=== PATIENT | female | born 1955 | race Caucasian/White ===

== ENCOUNTER → 2021-05-30 | Outpatient (CLI) | payer MEDICAID ==
[~2021-05-30] MED LIST: AGM875T PO; CALC-656 PO; CTLP20T PO; DIAZ-345 PO; ESCT10T PO; HYDR-229 PO; LORA1TAB5 PO; MULT-608 PO; NAPR-243 PO
== END ==
LOC: WOUNDCARE 13:18
PROVIDERS: ATTEND Family Medicine
DX: L97.222 Non-pressure chronic ulcer of left calf with fat layer exposed (principal); L03.116 Cellulitis of left lower limb; I89.0 Lymphedema, not elsewhere classified; E66.01 Morbid (severe) obesity due to excess calories; M06.9 Rheumatoid arthritis, unspecified; Z68.37 Body mass index [BMI] 37.0-37.9, adult
CPT/HCPCS: 11042; A6197; G0463

== ENCOUNTER → 2021-06-05 | Outpatient (CLI) | payer MEDICAID | LOC: WOUNDCARE 13:08 | PROVIDERS: ATTEND Family Medicine | DX: I96 Gangrene, not elsewhere classified (principal); L97.222 Non-pressure chronic ulcer of left calf with fat layer exposed; L03.116 Cellulitis of left lower limb; I89.0 Lymphedema, not elsewhere classified; E66.01 Morbid (severe) obesity due to excess calories; M06.9 Rheumatoid arthritis, unspecified; Z68.37 Body mass index [BMI] 37.0-37.9, adult | CPT/HCPCS: A6212; G0463; 99212 ==

== ENCOUNTER → 2021-06-12 | Outpatient (CLI) | payer MEDICAID | LOC: WOUNDCARE 13:02 | PROVIDERS: ATTEND Family Medicine | DX: I96 Gangrene, not elsewhere classified (principal); L97.222 Non-pressure chronic ulcer of left calf with fat layer exposed; I89.0 Lymphedema, not elsewhere classified; E66.01 Morbid (severe) obesity due to excess calories; M06.9 Rheumatoid arthritis, unspecified; Z68.37 Body mass index [BMI] 37.0-37.9, adult | CPT/HCPCS: 11042; G0463 ==

== ENCOUNTER → 2021-06-19 | Outpatient (CLI) | payer MEDICAID | LOC: WOUNDCARE 13:09 | PROVIDERS: ATTEND Family Medicine | DX: I96 Gangrene, not elsewhere classified (principal); L97.222 Non-pressure chronic ulcer of left calf with fat layer exposed; I89.0 Lymphedema, not elsewhere classified; E66.01 Morbid (severe) obesity due to excess calories; M06.9 Rheumatoid arthritis, unspecified; Z68.37 Body mass index [BMI] 37.0-37.9, adult | CPT/HCPCS: 11042; G0463 ==

== ENCOUNTER → 2021-06-26 | Outpatient (CLI) | payer MEDICAID | LOC: WOUNDCARE 13:09 | PROVIDERS: ATTEND Family Medicine | DX: I96 Gangrene, not elsewhere classified (principal); L97.222 Non-pressure chronic ulcer of left calf with fat layer exposed; I89.0 Lymphedema, not elsewhere classified; E66.01 Morbid (severe) obesity due to excess calories; M06.9 Rheumatoid arthritis, unspecified; Z68.37 Body mass index [BMI] 37.0-37.9, adult | CPT/HCPCS: 11042; A6021; G0463 ==

== ENCOUNTER → 2021-07-03 | Outpatient (CLI) | payer MEDICAID | LOC: WOUNDCARE 13:04 | PROVIDERS: ATTEND Family Medicine | DX: I89.0 Lymphedema, not elsewhere classified (principal); E66.01 Morbid (severe) obesity due to excess calories; M06.9 Rheumatoid arthritis, unspecified; T65.222A Toxic effect of tobacco cigarettes, intentional self-harm, initial encounter | CPT/HCPCS: 29581; G0463 ==

== ENCOUNTER 2021-09-24 07:57 | Emergency (ER) | payer MEDICAID ==
[~2021-09-24] VITALS: Ht 162.5 cm; Wt 81.6 kg
[2021-09-24] MEDS ORDERED: RT-ALBUTEROL HFA 8.5 GM INHALER IH STA (08:10)
[2021-09-24] MEDS ORDERED: fentaNYL INJ 100 MCG/2 ML AMP IVP ONE (08:15)
[2021-09-24 08:19] LABS: BASOPHILS % (AUTO) 0 % (0-10); EOSINOPHILS # (AUTO) 0.2 10^3/uL (0.0-0.3); EOSINOPHILS % (AUTO) 2 % (0-10); HEMATOCRIT 37 % (35-52); HEMOGLOBIN 12.1 g/dL (11.5-16.0); LYMPHOCYTES # (AUTO) 2.3 10^3/uL (1.0-4.0); LYMPHOCYTES % (AUTO) 20 % (12-44); MEAN CORPUSCULAR HEMOGLOBIN 30 pg (25-34); MEAN CORPUSCULAR HGB CONC 33 g/dL (32-36); MEAN CORPUSCULAR VOLUME 93 fL (80-99); MEAN PLATELET VOLUME 8.3 fL (9.0-12.2); MONOCYTES # (AUTO) 0.6 10^3/uL (0.0-1.0); MONOCYTES % (AUTO) 6 % (0-12); NEUTROPHILS # (AUTO) 8.3 10^3/uL (1.8-7.8); NEUTROPHILS % (AUTO) 72 % (42-75); PLATELET COUNT 285 10^3/uL (130-400); WHITE BLOOD COUNT 11.5 10^3/uL (4.3-11.0)
[2021-09-24 08:37] LABS: ALBUMIN 3.8 GM/DL (3.2-4.5); POTASSIUM 4.5 MMOL/L (3.6-5.0)
[2021-09-24 08:38] LABS: CALCIUM 9.5 MG/DL (8.5-10.1)
[2021-09-24 08:39] LABS: TOTAL PROTEIN 7.2 GM/DL (6.4-8.2)
[2021-09-24 08:41] LABS: BILIRUBIN,TOTAL 0.3 MG/DL (0.1-1.0)
[2021-09-24 08:43] LABS: CREATININE SERUM 1.01 MG/DL (0.60-1.30)
--- NOTE | 2021-09-24 09:14 | ED Abdominal Pain ---
General Chief Complaint: Abdominal/GI Problems Stated Complaint: ABD PAIN Nursing Triage Note: abdominal pain started at 0500 this am, reports paiun before from lower abdominal hernia. currently rates pain 11/12 arrived via ambulance to room 3 Source of Information: Patient Exam Limitations: No Limitations History of Present Illness Date Seen by Provider: September 24, 2021 Time Seen by Provider: 07:59 Initial Comments This 65-year-old woman presents to the emergency room with complaints of pain in the left inguinal area secondary to a known hernia for which she is to see a surgeon, Dr. Richardson, at [place] next week. The pain was so intense this morning that she felt it necessary to call 911 and seek ambulance transport to the ER. Upon arrival to the ER her pain suddenly dissipated to a mild to moderate level. She has been suffering from chronic cough and the hernia tends to get worse and more painful when she has coughing fits. She is having a coughing fit this morning. She states her cough is no worse than normal and she denies any other symptoms of infectious illness such as fever, chills, diarrhea, etc. She has noted no change in bowels and her last bowel movement was this morning. She did have some nausea when her pain was more intense. Patient states she is normally able to reduce the hernia on her own but has not been able to reduce it this morning. Allergies and Home Medications Allergies Coded Allergies: No Known Drug Allergies (Unverified , 02/13/10) Patient Home Medication List Home Medication List Reviewed: Yes Benzonatate (Tessalon Perles) 100 Mg Capsule, 200 MG PO TID PRN for COUGH Prescribed by: ABEL GUZMAN on 09/24/21916 Benzonatate (Tessalon Perles) 100 Mg Capsule, 200 MG PO TID PRN for COUGH Prescribed by: ABEL GUZMAN on 09/24/21916 Calcium Carbonate/Vitamin D3 (Calcium 500 + D Tablet) 1 Each Tablet, 1 TAB PO DAILY, (Reported) Entered as Reported by: YUE YUSUF on 12/20/092018 Citalopram Hydrobromide (Celexa) 20 Mg Tablet, 1 EACH PO DAILY, (Reported) Entered as Reported by: JUAN PABLO ONEAL on 09/21/11 1354 Diazepam (Valium 5 Mg Tab) 5 Mg Tablet, 1 EACH PO TID Prescribed by: KAMILA TIERNEY on 09/21/111510 Hydrocodone Bit/Acetaminophen (Lortab 10-500 Tablet) 1 Each Tablet, 1 EACH PO Q 4 - 6 HRS PRN Prescribed by: KAMILA TIERNEY on 09/21/111510 Loratadine/Pseudoephedrine (Claritin-D 24 Hour Tab Er) 1 Tab.sr .24 H Tab.sr.24h, 1 TAB PO DAILY, (Reported) Entered as Reported by: YUE YUSUF on 12/20/092018 Multivitamins (Multiple Vitamin) 1 Tab Tablet, 1 TAB PO DAILY, (Reported) Entered as Reported by: YUE YUSUF on 12/20/092018 Naproxen (Naprosyn) 500 Mg Tablet, 500 MG PO BID, (Reported) Entered as Reported by: YUE YUSUF on 12/20/092018 Review of Systems Review of Systems Constitutional: no symptoms reported EENTM: No Symptoms Reported Respiratory: See HPI Cardiovascular: No Symptoms Reported Gastrointestinal: See HPI Genitourinary: No Symptoms Reported Musculoskeletal: no symptoms reported Skin: no symptoms reported Psychiatric/Neurological: No Symptoms Reported Endocrine: No Symptoms Reported Hematologic/Lymphatic: No Symptoms Reported Past [id number]-[id number]-Kenlpo Hx Patient Social History Tobacco Use?: Yes Tobacco type used: Cigarettes Smoking Status: Current Everyday Smoker Use of E-Cig and/or Vaping dev: No Substance use?: No Alcohol Use?: No Pt feels they are or have been: No Immunizations Up To Date First/Initial COVID19 Vaccinat: declined Past Medical History Surgeries: Yes Section, Joint Replacement (Bilateral knees) Respiratory: Yes COPD (Chronic cough) Cardiac: Yes (Congestive heart failure) Neurological: No : No Reproductive Disorders: No Genitourinary: No Gastrointestinal: Yes Abdominal Hernia (Left inguinal hernia) Musculoskeletal: No Endocrine: No HEENT: No Cancer: No Psychosocial: No Physical Exam Vital Signs Vital Signs - First Documented 09/24/21 08:00 Temp 35.5 Pulse 75 Resp 20 B/P (MAP) 149/97 (114) Pulse Ox 94 O2 Delivery Room Air Capillary Refill : Less Than 3 Seconds Height/Weight/BMI Height: '" Weight: lbs. oz. 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, no motor/sensory deficits, alert, normal mood/affect, oriented x 3 Skin: normal color, warm/dry Progress/Results/Core Measures Results/Orders Lab Results Laboratory Tests Test 09/24/21 08:05 Range/Units White Blood Count 11.5 H 4.3-11.0 10^3/uL Red Blood Count 3.98 3.80-5.11 10^6/uL Hemoglobin 12.1 11.5-16.0 g/dL Hematocrit 37 35-52 % Mean Corpuscular Volume 93 80-99 fL Mean Corpuscular Hemoglobin 30 25-34 pg Mean Corpuscular Hemoglobin Concent 33 32-36 g/dL Red Cell Distribution Width 14.3 10.0-14.5 % Platelet Count 285 130-400 10^3/uL Mean Platelet Volume 8.3 L 9.0-12.2 fL Immature Granulocyte % (Auto) 0 % Neutrophils (%) (Auto) 72 42-75 % Lymphocytes (%) (Auto) 20 12-44 % Monocytes (%) (Auto) 6 0-12 % Eosinophils (%) (Auto) 2 0-10 % Basophils (%) (Auto) 0 0-10 % Neutrophils # (Auto) 8.3 H 1.8-7.8 10^3/uL Lymphocytes # (Auto) 2.3 1.0-4.0 10^3/uL Monocytes # (Auto) 0.6 0.0-1.0 10^3/uL Eosinophils # (Auto) 0.2 0.0-0.3 10^3/uL Basophils # (Auto) 0.0 0.0-0.1 10^3/uL Immature Granulocyte # (Auto) 0.0 0.0-0.1 10^3/uL Sodium Level 138 135-145 MMOL/L Potassium Level 4.5 3.6-5.0 MMOL/L Chloride Level 100 98-107 MMOL/L Carbon Dioxide Level 27 21-32 MMOL/L Anion Gap 11 5-14 MMOL/L Blood Urea Nitrogen 16 7-18 MG/DL Creatinine 1.01 0.60-1.30 MG/DL Estimat Glomerular Filtration Rate 63 BUN/Creatinine Ratio 16 Glucose Level 128 H 70-105 MG/DL Calcium Level 9.5 8.5-10.1 MG/DL Corrected Calcium 9.7 8.5-10.1 MG/DL Total Bilirubin 0.3 0.1-1.0 MG/DL Aspartate Amino Transf (AST/SGOT) 20 5-34 U/L Alanine Aminotransferase (ALT/SGPT) 15 0-55 U/L Alkaline Phosphatase 52 40-136 U/L C-Reactive Protein High Sensitivity 0.15 0.00-0.50 MG/DL Total Protein 7.2 6.4-8.2 GM/DL Albumin 3.8 3.2-4.5 GM/DL Lipase 216 H 8-78 U/L My Orders Orders - ABEL OCHOA MD Cbc With Automated Diff (09/24/21 07:59) Comprehensive Metabolic Panel (09/24/21 07:59) Hs C Reactive Protein (09/24/21 07:59) Lipase (09/24/21 07:59) Ua Culture If Indicated (09/24/21 07:59) Fentanyl Inj (Sublimaze Injection) (09/24/21 08:15) Albuterol Inhaler (Albuterol) (09/24/21 08:10) Medications Given in ED Current Medications Medications Dose Ordered Sig/Meagan Route Start Time Stop Time Status Last Admin Dose Admin Fentanyl Citrate 50 mcg ONCE ONCE IVP 09/24/21 08:15 09/24/21 08:16 DC 09/24/21 08:25 50 MCG Vital Signs/I&O 09/24/21 09/24/21 08:00 09:35 Temp 35.5 Pulse 75 94 Resp 20 18 B/P (MAP) 149/97 (114) 148/83 Pulse Ox 94 94 O2 Delivery Room Air Room Air Blood Pressure Mean: 114 Progress Progress Note : Time: 09:18 Progress Note Patient was interviewed and examined immediately upon arrival and report was received from EMS. On examination she had an obvious incarcerated left inguinal hernia. She was not severely tender at that time and pain had actually improved significantly after arrival even before treatment with fentanyl. I discussed the situation with Dr. Carney who recommended placing the patient in slight Trendelenburg and using a frog-leg position during a repeat reduction attempt. This was successful and hernia was completely reduced. Patient was then pain- free. She was given albuterol inhaler treatments which greatly improved her coughing. She was not observed to have any more coughing fits after the albuterol treatment. She was strongly encouraged to reduce her smoking and to treat her allergies and COPD with inhaler and Flonase. See discharge instructions for further discussion. Departure Impression Primary Impression: Left inguinal hernia Additional Impressions: Elevated lipase COPD (chronic obstructive pulmonary disease) Qualified Codes: J44.9 - Chronic obstructive pulmonary disease, unspecified Pelvic pain Disposition: HOME, SELF-CARE Condition: Improved Departure-Patient Inst. Decision time for Depature: 09:09 Referrals: NO,LOCAL PHYSICIAN (PCP/Family) Primary Care Physician Patient Instructions: Inguinal and Femoral (Groin) Hernias Add. Discharge Instructions: Make every effort to reduce episodes of severe coughing. To do this, reduce smoking as rapidly as possible and work toward quitting as rapidly as possible. Use your inhaler up to 4 puffs in a 4-hour period of time. You may also use an expectorant such as Mucinex containing guaifenesin. You may also use a cough suppressant such as dextromethorphan purchased [id number] or the Tessalon Perles prescribed. Use a nasal steroid spray (fluticasone) 2 sprays in each nostril twice daily. If the bulging from the hernia returns, attempt to reduce it. If you are unable to reduce it and the pain is severe, return to the emergency room without delay. Also return to the ER if you develop other significant symptoms such as vomiting, inability to produce bowel or gas movements, fever, etc. Otherwise, keep your appointment with Dr. Richardson. Your lipase (pancreas enzyme) is elevated today to help rest your bowels and your pancreas, adhere to a clear liquid diet for the remainder of today. Tomorrow you may gradually advance your diet with small quantities of bland food as tolerated. Avoid any alcohol consumption. To treat pain you may take Tylenol (acetaminophen). Call with questions or concerns and return to the ER if you have any other urgent concerns or medical issues. All discharge instructions reviewed with patient and/or family. Voiced understanding. Scripts Benzonatate (TESSALON PERLES) 100 Mg Capsule 200 MG PO TID PRN for COUGH, #20 CAP Prov: ABEL OCHOA MD 09/24/21 Benzonatate (TESSALON PERLES) 100 Mg Capsule 200 MG PO TID PRN for COUGH, #20 CAP Prov: ABEL OCHOA MD 09/24/21 ABEL OCHOA MD September 24, 2021 09:14
[2021-09-24] MEDS ORDERED: BENZ100C18 PO (09:17)
[2021-09-24 09:35] VITALS: BP 148/83
== END 2021-09-24 09:44 | disposition home or self-care (01) ==
LOC: ER 07:57 → EDUNIT# 07:57 → ER 09:44
DX: K40.90 Unilateral inguinal hernia, without obstruction or gangrene, not specified as recurrent (principal); J44.9 Chronic obstructive pulmonary disease, unspecified; R74.8 Abnormal levels of other serum enzymes; F17.210 Nicotine dependence, cigarettes, uncomplicated
CPT/HCPCS: 36415; 80053; 83690; 85025; 86141